=== PATIENT | female | born 1975 | race Caucasian/White ===

== ENCOUNTER 2022-08-04 09:26 | Day surgery (SDC) | payer OTHER, SELFPAY ==
[2022-07-29 08:08] VITALS: BMI 20.3
--- NOTE | 2022-08-03 11:58 | WPDANESEPPF ---
Anes - Initial Pre Proc Eval Procedure: Operation Date: 08/04/22 11:00 Proposed Procedures p Esophagogastroduodenoscopy - Roger Joseph MD <Abel Kendall MD - Last Filed: 08/03/22 11:59> Date/Time: 08/03/22 11:58 <Abel Kendall MD - Last Filed: 08/03/22 11:59> Surgeon: Roger Joseph MD <Abel Kendall MD - Last Filed: 08/03/22 11:59> Pre Op Diagnosis: Hematemesis, Gerd <Abel Kendall MD - Last Filed: 08/03/22 11:59> Patient Data Age: 47 Gender: F Height: 1.7 m Weight: 59 kg <Abel Kendall MD - Last Filed: 08/03/22 11:59> Allergies Allergy/AdvReac Type Severity Reaction Status Date / Time azithromycin Allergy Intermediate Rash Verified 08/04/22 10:04 <Abel Kendall MD - Last Filed: 08/03/22 11:59> Home Medications Medication Instructions Recorded Confirmed Type alprazolam 0.25 mg tablet 0.25 mg PO QHS PRN Anxiety 07/21/22 08/04/22 History bupropion HCl 150 mg 24 hr tablet, 150 mg PO QAM 07/21/22 08/04/22 History extended release multivitamin 1 tablet PO DAILY 07/21/22 08/04/22 History pantoprazole 40 mg tablet,delayed 40 mg PO QAM 07/21/22 08/04/22 History release rosuvastatin 20 mg tablet 20 mg PO DAILY 07/21/22 08/04/22 History dicyclomine 10 mg capsule 10 mg PO .every 6 hours PRN 07/27/22 08/04/22 Rx abdominal pain #360 caps escitalopram oxalate 20 mg tablet 20 mg PO DAILY 07/29/22 08/04/22 History <Abel Kendall MD - Last Filed: 08/03/22 11:59> Patient hx anesthesia problems: none <Ajit Byrnes MD - Last Filed: 08/04/22 10:07> Family hx anesthesia problems: none <Ajit Byrnes MD - Last Filed: 08/04/22 10:07> Results Review: All pre-operative results and documents have been reviewed as part of the pre-operative evaluation. <Abel Kendall MD - Last Filed: 08/03/22 11:59> [facility] Past Medical History Medical History: Medical History Anxiety Diverticulosis GERD (gastroesophageal reflux disease) Hematemesis of fresh blood History of adenomatous polyp of colon Hyperlipidemia Tobacco abuse <Abel Kendall MD - Last Filed: 08/03/22 11:59> Social History Social History: Social History Smoking packs per day: 0.5 Smoking cigarettes per day: 10.0 Years smoked: 20 Smoking pack-years: 10.00 Smoking status: Current every day smoker Tobacco type: cigarettes Substance use: current Substance use type: marijuana Other substance usage details: 4X PER MONTH Living arrangements: with family Spiritual care concerns: No <Abel Kendall MD - Last Filed: 08/03/22 11:59> Anes - Eval Final PreProcedure Day of Procedure 08/03/22 11:58 <Abel Kendall MD - Last Filed: 08/03/22 11:59> Patient weight: normal <Abel Kendall MD - Last Filed: 08/03/22 11:59> Heart: regular rate and rhythm <Abel Kendall MD - Last Filed: 08/03/22 11:59> Lungs: clear to auscultation and normal air movement <Abel Kendall MD - Last Filed: 08/03/22 11:59> Airway: Mallampati scale class II <Abel Kendall MD - Last Filed: 08/03/22 11:59> Neurological: alert and oriented <Abel Kendall MD - Last Filed: 08/03/22 11:59> Last oral intake: >/= 8 hours <Abel Kendall MD - Last Filed: 08/03/22 11:59> ASA classification: II <Abel Kendall MD - Last Filed: 08/03/22 11:59> Emergent: no <Abel Kendall MD - Last Filed: 08/03/22 11:59> Anesthetic plan: proceed <Abel Kendall MD - Last Filed: 08/03/22 11:59> Anesthesia type and monitoring: general GIVS <Abel Kendall MD - Last Filed: 08/03/22 11:59> Results Review: All pre-operative results and documents have been reviewed as part of the pre-operative evaluation. <Abel Kendall MD - Last Filed: 08/03/22 11:59> Informe
[2022-08-04 09:44] VITALS: BP 135/85; PULSE 62; RESP 16; TEMP 36.6; O2SAT 99
[2022-08-04] MEDS: LACTATED RINGERS 1,000 ML 150 ML IV CONT (10:02)
--- NOTE | 2022-08-04 10:17 | WPDHPUPDATE1 ---
History and Physical Update Update Date/Time: 08/04/22 10:17 History and Physical has been reviewed, including an updated exam of the patient. There are NO changes in the patient's condition. Risks, benefits, and alternatives have been discussed and questions answered. Patient agrees to proceed with procedure.
[2022-08-04 10:55] VITALS: BP 120/79; PULSE 73; RESP 16; O2SAT 98
[2022-08-04 11:05] VITALS: BP 139/94; PULSE 62; RESP 14; O2SAT 100
--- NOTE | 2022-08-04 11:13 | WPDANESPN ---
Anes - Prog Note Post-Op Date/Time: 08/04/22 11:13 Cardiovascular status: normal Respiratory status: normal Airway patency: baseline Mental status: baseline Post-Op hydration status: normal Vital Signs: Last Vital Signs Temp 36.6 C 08/04/22 09:44 Pulse 62 08/04/22 11:05 Resp 14 08/04/22 11:05 BP 139/94 H 08/04/22 11:05 Pulse Ox 100 08/04/22 11:05 O2 Del Method Room Air 08/04/22 11:05 Pain Score (VAS): 0/10 I/O: Intake & Output 08/03/22 08/04/22 08/04/22 23:59 07:59 15:59 Intake Total 200 Balance 200 Patient Feedback: Patient satisfied with anesthetic care.
[2022-08-04 11:15] VITALS: BP 141/84; PULSE 62; RESP 14; O2SAT 100
== END 2022-08-04 11:36 | disposition home or self-care (01) ==
PROVIDERS: PCP Student in an Organized Health Care Education/Training Program; Visit Provider Internal Medicine Gastroenterology
PROC: 0DJ08ZZ Inspection of Upper Intestinal Tract, Via Natural or Artificial Opening Endoscopic (ICD-10-PCS; CPT 43235; principal; 2022-08-04 11:00)
DX: K92.0 Hematemesis (principal)
CPT/HCPCS: 43239

== ENCOUNTER → 2024-06-11 15:23 | Outpatient (CLI) | payer OTHER, SELFPAY ==
--- NOTE | ~2024-06-11 | XR_ITS ---
CHEST RADIOGRAPH, PA AND LATERAL CLINICAL HISTORY: PERSISTENT COUGH. . COMPARISON: None TECHNIQUE: PA and lateral views of the chest. FINDINGS The cardiomediastinal silhouette is unremarkable. The lungs are clear. Visualized osseous structures and soft tissues are unremarkable. IMPRESSION: No focal infiltrate or effusion. Reviewed, dictated and finalized at location A.
--- OUTSIDE RECORDS SUMMARY | 2024-06-11 16:34 | XMS_ITS | Encounter Summary ---
Author Organization [facility] Address [address] [place] [id number] Care Team Providers Care Angle Shear Operator Name Role Phone Oren Pak DO Primary Care Provider + Encounter Details Date Type Department Care Team (Late st Contact Info) Description 05/07/2024 MyChart Message Enc [facility] Family & Internal Medicine [facility] [address] [place] [address] Oren Pak DO [facility] [place], [place] [id number] Mammogram Social History Tobacco Use Types Packs/Day Years Used Date Smoking Tobacco: Former Cigarettes 0.5 10 Q uit: 08/27/2021 Passive Smoke Exposure: Never Smokeless Tobacco: Never Comments:provider to community health counselor Alcohol Use Standard Drinks/Week Comments Not Currently 3.3 (1 standard drink = 0.6 oz p ure alcohol) very rarely AUDIT-C Answer Date Recorded Frequency of Alcohol Consumption Monthly or less 10/10/2019 Average Number of Drinks 1 or 2 020 Frequency of Binge Drinking Never 09/27 PHQ-2 Answer Date Recorded Patient Health Questionnaire-2 Score 0 01/24/2024 Comments No Sex and Gender Information Value Date Recorded Sex Assigned at Not on file Legal Sex Female 9:08 AM CDT Gender Identity Not on file Sexual Orientation Not on file Occupation Industry Job Start Date Job End Date teacher Not on file Not on file Not on file documented as of this encounter Plan of Treatment Upcoming Encounters Date Type Department Care Team (Late st Contact Info) Description 07/29/2024 7:20 AM CDT Laboratory Only [facility] Family & Internal Medicine [address] [address] Oren Pak DO [address] [place] [address] 08/05/2024 10:20 AM CDT Office Visit [facility] Family & Internal [address] [address] Oren Pak DO [address] [place] [address] documented as of this encounter Visit Diagnoses Not on filedocumented in this encounter Additional Health Concerns Assessment Noted Time PHQ-9 Depression Total Score: 3 05/01/19 24 11:45 AM DRAGLINE OPERATOR HELPER documented as of this encounter Care Teams Angle Shear Operator Relationship Specialty Start Date End Date Oren Pak DO [address] [place] [id number] PCP - General FAMILY PRACTICE 10/10/19 documented as of this encounter
--- OUTSIDE RECORDS SUMMARY | 2024-06-11 16:34 | XMS_ITS | Referral Summary ---
Author Organization [facility] Address [address] [place] [address] Care Team Providers Care Sprue Cutting Press Operator Name Role Phone Oren Pak Primary Care Provide r Encounters Date Type Department Care Team Description 05/04/2024 9:45 AM PUNCH PRESS FEEDER - 05/04/2024 11:59 PM PUNCH PRESS FEEDER Hospital Encounter [facility] [address] [place] [address] Screening mammogram, encounter for Discharge Disposition: Discharge to home or self care from Last 3 Months Allergies Active Allergy Reactions Criticality Noted Date Comments Azithromycin Rash Reaction: Rash, Medications ALPRAZolam (XANAX) 0.25 mg tablet Take 1 tablet (0.25 mg total) by mouth daily as needed 05/01/2023 Active buPROPion XL (WELLBUTRIN XL) 300 mg 24 hr tablet Take 1 tablet (300 mg total) by mouth daily 03/20/2023 Active rosuvastatin (CRESTOR) 20 mg tablet Take 1 tablet (20 mg total) by mouth daily 05/01/2023 Active sertraline (ZOLOFT) 100 mg tablet Take 1.5 tablets (150 mg total) by mouth daily 09/04/2023 Active Active Problems Problem Noted Date Diagnosed Date Family history of colon cancer 11/11/2021 Overview (11/11/2021): Added automatically from request for surgery [id number] Encounter for screening colonoscopy 11/11/2021 Overview (11/11/2021): Added automatically from request for surgery [id number] Vaginal delivery Resolved Problems Problem Noted Date Diagnosed Date Resolved Date Vitamin D deficiency 06/29/2017 018 AMA (advanced maternal age) multigravida 35+, third trimester 06/08/2017 11/30/2017 No pathologic diagnosis 07/13/201310/29 Overview (06/02/2016): No diagnosis 38 weeks gestation of 12/01/2018 Social History Tobacco Use Types Packs/Day Years Used Date Smoking Tobacco: Some Days Cigarettes 0.3 20 Smokeless Tobacco: Never Tobacco Cessation:Ready to Q uit: Not Asked; Counseling Given: Not Answered Alcohol Use Standard Drinks/Week Comments No 0 (1 standard drink = 0.6 oz pur e alcohol) AUDIT-C Answer Date Recorded Q1: How often do you have a drink containing alc ohol? Never 03/14/2022 Average Number of Drinks Not on file 023 Frequency of Binge Drinking Not on file 02/27 PHQ-2 Answer Date Recorded PHQ-2 Total Score (If total score is 3 or more points, staff should administer the PHQ-9) 0 02/18/2021 Comments No Sex and Gender Information Value Date Recorded Sex Assigned at Not on file Legal Sex Female 7:37 PM PUNCH PRESS FEEDER Gender Identity Not on file Sexual Orientation Not on file Last Filed Vital Signs Vital Sign Reading Time Taken Comments Blood Pressure 124/86 11/04/2023 10:33 AM CDT Pulse 99 11/04/2023 10:33 AM CDT Temperature 36.4 C (97.5 F) 11/04/2023 10:33 AM CDT Respiratory Rate 16 11/04/2023 10:33 AM CDT Oxygen Saturation 99% 11/04/2023 10:33 AM CDT Inhaled Oxygen Concentration - - Weight 73 kg (161 lb) 11/04/2023 10:33 AM CDT Height 170.2 cm (5' 7 ) 11/04/2023 10:33 AM CDT Body Mass Index 25.22 11/04/2023 10:33 AM CDT Plan of Treatment Not on file Procedures Procedure Name Priority Date/Time Associated Diagnosis Comments SCREENING MAMMOGRAM BILATERAL W CORNELL Schedule Routine, Read Routine (OP Routine) 05/04/2024 10:13 AM PUNCH PRESS FEEDER Screening mammogram, encounter for COLONOSCOPY 03/14/2022 10:14 AM PUNCH PRESS FEEDER PAP AND HIGH RISK HPV, REFLEX TO GENOTYPING Routine 02/18/2021 11:43 AM PUNCH PRESS FEEDER Well woman exam HEPATITIS C ANTIBODY Routine 06/28/2017 3:15 PM CDT Encounter for supervision of other normal in first trimester from Last 3 Months or Most Recently Relevant to Health Maintenance Results * Screening Mammogram Bilateral W [facility] (05/04/2024 10:13 AM PUNCH PRESS FEEDER) Anatomical Region Laterality Modality Breast Bilateral Mammography 05/06/2024 8:12 AM CDT Impressions 05/06/2024 8:12 AM CDT There is no mammographic evidence of malignancy. A 1 year screening mammogram is recommended. BI-RADS: 1 - Negative. The patient has been or will be contacted. The patient will be entered into a reminder system with a target due date of 1 year for her next mammogram. Electronically signed by: Cele Alegre M.D. Narrative 05/06/2024 8:12 AM CDT EXAMINATION: SCREENING MAMMOGRAM BILATERAL W CORNELL ORDERING HEALTHCARE PROVIDER: SELF SCREENING MAMMOGRAM HISTORY: Routine screening mammography. COMPARISON: 12/07/2021, 05/23/2020, 03/18/2019 TECHNIQUE: CC and MLO views of the bilateral breasts were obtained with digital technique using breast tomosynthesis with C view. Computer aided detection was utilized. FINDINGS: DENSITY: The breasts are heterogeneously dense, which may obscure small masses. BREASTS: There are no suspicious masses, suspicious calcifications, or other suspicious findings in either breast. There has been no suspicious interval change. us Self Screening Mammogram IMG MAMMO PROCEDURES Fi nal Result * COLONOSCOPY (03/14/2022 10:14 AM PUNCH PRESS FEEDER) Anatomical Region Laterality Modality Other Narrative Procedure Note Mariah Najera MD - 03/14/2022 10:14 AM CST [facility] Patient Name: Berenice Emeterio Procedure Date: 03/14/2022 10:14 AM Date of : 1975 Admit Type: Outpatient Age: 47 Gender: Female Attending MD: Mariah Najera M.D. Room: [facility] END[facility]COPY RO[facility] 1 Note Status: Finalized Patient Profile: This is a 47 year old female. No family history of colon cancer. Screening Procedure: Colonoscopy Indications: Screening for colorectal malignant neoplasm, Thisis the patient's first colonoscopy Referring MD: Selin Taylor, Oren Pak D.O. Providers: Mariah Najera M.D. Impression: - Diverticulosis in the sigmoid colon. - Two 6 to 12 mm polyps in the sigmoid colon,removed with a snare. Resected and retrieved. - Internal hemorrhoids. Recommendation: - Repeat colonoscopy in 3 years for screeningpurposes. - Await pathology results. - Continue present medications. Medicines: Monitored Anesthesia Care Complications: No immediate complications. Estimated Blood Loss: Estimated blood loss: none. Procedure: Pre-Anesthesia Assessment: - Prior to the procedure, a History and Physicalwas performed, and patient medications and allergieswere reviewed. The patient's tolerance of previous anesthesia was also reviewed. The risks andbenefits of the procedure and the sedation options and risks were discussed with the patient. All questions were answered, and informed consent was obtained. Prior Anticoagulants: The patient has taken noanticoagulant or antiplatelet agents. ASA Grade Assessment: II -A patient with mild systemic disease. After reviewing the risks and benefits, the patient was deemed in satisfactory condition to undergo the procedure. The benefits, risks and alternatives of theprocedure and sedation were discussed and informed consentwas obtained. All questions were answered. Please referto the signed informed consent document in the medical record. The bowel preparation used was Miralax via split dose instruction. The bowel preparation usedwas bisacodyl tablets via split dose instruction. The scope was passed under direct vision. The Pediatric Colonoscope [id number]-[id number] was introducedthrough the anus and advanced to the the cecum, identifiedby appendiceal orifice and ileocecal valve. Thequality of the bowel preparation was good. Bowel prep was administered using a split dose. Findings: The perianal and digital rectal examinations were normal. The descending colon, transverse colon, ascending colon and cecum appeared normal. Many small-mouthed diverticula were found in the sigmoid colon. Two sessile polyps were found in the sigmoid colon. The polyps were 6 sessile and 12 mm pedunculated in size. These polyps were removedwith a cold snare and hot snare respectively. Resection and retrieval were complete. Internal hemorrhoids were found during retroflexion. The hemorrhoids were small. Electronically signed by Mariah Najera M.D. Mariah Najera M.D. 03/14/2022 12:00:26 PM Number of Addenda: 0 Note Initiated On: 03/14/2022 10:14 AM Procedure Code(s): --- Professional --- 19435, Colonoscopy, flexible; with removal of tumor(s), polyp(s), or other lesion(s) by snare technique Diagnosis Code(s): --- Professional --- Z12.11, Encounter for screening for malignant neoplasm of colon K64.8, Other hemorrhoids D12.5, Benign neoplasm of sigmoid colon K57.30, Diverticulosis of large intestine without perforation orabscess without bleeding CPT copyright 2020 [employer]. All rights reserved. The codes documented in this report are preliminary and upon remedial teacher reviewmay be revised to meet current compliance requirements. Recognized by the [employer] for promoting quality in endoscopy Mariah Najera MD ENDOSCOPY PROCEDURES Final Result * Pap and High Risk HPV, reflex to Genotyping (02/18/2021 11:43 AM PUNCH PRESS FEEDER) Clinical indication Comment [facility] - 01 Comment:NEGATIVE FOR INTRAEP ITHELIAL LESION OR MALIGNANCY. Specimen adequacy: Comment [facility] - 01 Comment:Satisfactory for yessy luation. No endocervical component is identified. Clinician provided ICD10 Comment [facility] - 01 Comment:Z01.419 Performed by Comment [facility] - 01 Comment:Dony Stringer Cytotec hnologist (ASCP) . . [facility] - 01 Note: Comment [facility] - 01 Comment: The Pap smear is a screening test designed to aid in the detection of premalignant and malignant conditions of the uterine cervix. It is not a diagnostic procedure and should not be used as the sole means of detecting cervical cancer. Both false-positive and false-negative reports do occur. Test methodology Comment [facility] - 01 Comment: This liquid based ThinPrep(R) pap test was screened with the use of an image guided system. HPV Aptima Negative Negative [facility] 02 Comment: This nucleic acid amplification test detects fourteen high-risk HPV types (16,18,31,33,35,39,45,51,52,56,58,59,66,68) without differentiation. Swab 02/18/2021 11:4 3 AM PUNCH PRESS FEEDER 02/22/2021 Narrative [facility] - 02/24/2021 1:08 PM PUNCH PRESS FEEDER Performed at: [address] [place] [id number] Automation Operator: Rahel Coronel MD, Phone: [phone] Performed at: [facility] [id number] Automation Operator: Rahel Coronel MD, Phone: [phone] Specimen Comment: No. of containers..01 ThinPrep Vial us Berenice Sanders NP LAB CYTOLOGY ORDERABLES Final Re sult Performing Organization Address City/[facility]/ZIP Co de Phone Number [facility] - [facility] [place] 02 * Hepatitis C antibody (06/28/2017 3:15 PM CDT) Pathologist [facility] Hep C Ab <0.1 0.0 - 0.9 s/co ratio [facility] - Comment: Negative: < 0.8 Indeterminate: 0.8 - 0.9 Positive: > 0.9 The CDC recommends that a positive HCV antibody result be followed up with a HCV Nucleic Acid Amplification test (229287). Blood specimen (specimen) 06/28/2017 3:15 PM CDT 06/28/2017 Narrative [facility] - 06/29/2017 10:17 AM CDT Performed at: [facility] [id number] Automation Operator: Jerzy Lau PhD, Phone: [phone] us Sedrick Patterson MD LAB MICROBIOLOGY - GENERAL ORDERABLES Final Result Performing Organization Address [facility] Co de Phone Number [facility] from Last 3 Months or Most Recently Relevant to Health Maintenance [place] [address] [facility] [employer] [facility] H[facility]/PPO Address: [address] [place] [address] [facility] [employer] [facility] H[facility]/PPO Address: [place] [address] [facility] [employer] [facility] H[facility]/PPO Address: [place] [address] Advance Directives For more information, please contact: [phone] * Full Code (Latest Code Status on File) Date Activated Date Inactivated Comments 03/14/2022 9:43 AM 03/14/2022 4:17 PM * Full Code Date Activated Date Inactivated Comments 03/14/2022 9:43 AM 03/14/2022 9:43 AM * Full Code Date Activated Date Inactivated Comments 12/10/2017 6:13 AM 12/11/2017 4:53 PM Full CPR i n case of cardiopulmonary arrest Care Teams Sprue Cutting Press Operator Relationship Specialty Start Date End Date Oren Pak DO [facility] [address] [place] [address] PCP - General Family Medicine 12/07/21
--- OUTSIDE RECORDS SUMMARY | 2024-06-11 16:34 | XMS_ITS | Clinical Summary ---
Author Organization [facility] Building B Address [address] [place] [address] Care Team Providers Care Tree Loader Meat Name Role Phone Oren Pak Primary Care Provide r Allergies Active Allergy Reactions Criticality Noted Date [...] (11/11/2021): Added automatically from request for surgery [id number] Encounter for screening colonoscopy 11/11/2021 Overview (11/11/2021): Added automatically from request for surgery [id number] Vaginal delivery Resolved Problems Problem Noted Date Diagnosed Date Resolved Date Vitamin D deficiency 06/29/2017 018 AMA (advanced maternal age) multigravida 35+, third trimester 06/08/2017 11/30/2017 No pathologic diagnosis 07/13/201310/29 Overview (06/02/2016): No diagnosis 38 weeks gestation of 12/01/2018 Encounters Date Type Department Care Team Description 05/04/2024 9:45 AM SPECIALTY DEPARTMENT SUPERVISOR - 05/04/2024 11:59 PM SPECIALTY DEPARTMENT SUPERVISOR Hospital Encounter [facility] [address] [place] [address] Screening mammogram, encounter for Discharge Disposition: Discharge to home or self care from Last 3 Months Surgical History Surgery Date Site/Laterality Comments OTHER SURGICAL HISTORY 02/27/2001 - 02/26/2002 : OTHER SURGICAL HISTORY 02/28/2004 - 02/26/2005 : OTHER SURGICAL HISTORY 02/27/2005 - 02/26/2006 : OTHER SURGICAL HISTORY 02/27/2009 - 02/26/2010 : COLONOSCOPY 03/14/2022 Medical History Medical History Date Comments Hx Other Medical 2001 ; Outc ome: 39 week 6 lb(s) 7 oz Female Hx Other Medical 2004 ; Outc ome: 39 week 6 lb(s) 10 oz Female Hx Other Medical 2005 ; Outc ome: 39 week 7 lb(s) 8 oz Male Hx Other Medical 2009 ; Outc ome: 39 week 8 lb(s) 7 oz Female Breast cyst Smoking Hypercholesterolemia Family History Medical History Relation Name Comments Hypertension Brother Hypertension; COPD Father COPD; Other Father Alive and well; Coronary artery disease Maternal Grandfather Coronary artery disease; Colon cancer Maternal Grandmother Thyroid disease Maternal Grandmother Thyr oid disease; Depression Mother Depression; Hypertension Mother Hypertension; Lupus Mother Lupus erythemat osus; Thyroid disease Mother Thyroid dise ase; Coronary artery disease Paternal Grandfather Coronary artery disease; Breast cancer Paternal Grandmother Cancer , breast; Diabetes Paternal Grandmother Diabete s mellitus; Relation Name Status Comments Brother Father Alive Maternal Grandfather Maternal Grandmother Mother Paternal Grandfather Paternal Grandmother Social History Tobacco Use Types Packs/Day Years [...] on file Legal Sex Female 7:37 PM SPECIALTY DEPARTMENT SUPERVISOR Gender Identity Not on file Sexual Orientation Not on file Obstetrics History Para Term AB IAB SAB Ectopic Multiple Livin g Live Births 9 6 2 3 3 0 6 6 Date Outcome GA Total Labor Labor//3rd Weight Sex Type Anes PTL Nazanin A1 A5 Name Clin SAB SAB SAB SAB SAB SAB 002 Para 2.92 kg (6 lb 7 oz) F Vag-S pont Livin g 005 Para 3.005 kg (6 lb 10 oz) F Vag-S pont Livin g 006 Para 3.402 kg (7 lb 8 oz) M Vag-S pont Livin g 010 Para 3.827 kg (8 lb 7 oz) M Vag-S pont Livin g 017 Term 39w 0d 3.118 kg (6 lb 14 oz) M Vag-S pont Epidur al N Livin g Madi Complications:None 018 Term 38w 2d 3h 06m 2h 47m/0h 07m/0h 12m 3.487 kg (7 lb 11 oz) F Vag-S pont None N Livin g 9 9 MENES ES,GI RLAMY Complications:None Delivery Location:[facility] Last Filed Vital Signs Vital Sign Reading [...] 11/04/2023 10:33 AM CDT Plan of Treatment Health Maintenance Due Date Last Done Comments Hepatitis B Screening 1994 Pneumococcal vaccine <65 (1 of 2 - PCV) 1995 Cervical Cancer Screening 02/18/2022 02/18/2021, Depression Screening 02/18/2022 02/18/2021, 02/17/2020, 01/28/2019, Additional history exists Regular Well Visit/Exam 18-64 02/18/2022, 02/17/2020, 01/28/2019 Covid-19 Vaccine (2023-2 5 season) 2023 02/16/2021, 05/08/2020, 04/10/2020 Breast Cancer Screening-Mammogram 05/04/2025 05/04/2024, 12/07/2021, 05/23/2020, Additional history exists DTaP/Tdap/Td Vaccine (2 - Td or Tdap) 08/19/2026 08/19/2016 Colon Cancer Screening-Colonoscopy 03/14/20322022 Hepatitis C Screening Completed 06/28/2017 Influenza Vaccine Completed 01/24/2024, , 12/23/2020, Additional history exists Procedures Procedure Name Priority Date/Time Associated Diagnosis Comments SCREENING MAMMOGRAM BILATERAL W CORNELL Schedule Routine, Read Routine (OP Routine) 05/04/2024 10:13 AM SPECIALTY DEPARTMENT SUPERVISOR Screening mammogram, encounter for COLONOSCOPY 03/14/2022 10:14 AM SPECIALTY DEPARTMENT SUPERVISOR PAP AND HIGH RISK HPV, REFLEX TO GENOTYPING Routine 02/18/2021 11:43 AM SPECIALTY DEPARTMENT SUPERVISOR Well woman exam HEPATITIS C ANTIBODY Routine 06/28/2017 3:15 PM CDT Encounter for supervision of other normal in first trimester from Last 3 Months or Most Recently Relevant to Health Maintenance Results * Screening Mammogram Bilateral W Cornell (05/04/2024 10:13 AM SPECIALTY DEPARTMENT SUPERVISOR) Anatomical Region Laterality Modality Breast Bilateral Mammography [...] nal Result * COLONOSCOPY (03/14/2022 10:14 AM SPECIALTY DEPARTMENT SUPERVISOR) Anatomical Region Laterality Modality Other Narrative Procedure Note Mariah Najera MD - 03/14/2022 10:14 AM CST [facility] Patient Name: Berenice Storm Procedure Date: 03/14/2022 10:14 AM Date of : 1975 Admit Type: Outpatient Age: 47 Gender: Female Attending MD: Mariah Najera M.D. Room: [facility] ENDOSCOPY ROOM 1 Note Status: Finalized Patient [...] under direct vision. The Pediatric Colonoscope [id number]-H190L [id number] was introducedthrough the anus and advanced to [...] 10:14 AM Procedure Code(s): --- Professional --- 75987, Colonoscopy, flexible; with removal of tumor(s), polyp(s), or other lesion(s) by snare technique Diagnosis Code(s): --- Professional --- Z12.11, Encounter for screening for malignant neoplasm of colon K64.8, Other hemorrhoids D12.5, Benign neoplasm of sigmoid colon K57.30, Diverticulosis of large intestine without perforation orabscess without bleeding CPT copyright 2020 [employer]. All rights reserved. The codes documented in this report are preliminary and upon street light servicer supervisor reviewmay be revised to meet current compliance requirements. Recognized by the [employer] for promoting quality in endoscopy Mariah Najera MD ENDOSCOPY PROCEDURES Final Result * Pap and High Risk HPV, reflex to Genotyping (02/18/2021 11:43 AM SPECIALTY DEPARTMENT SUPERVISOR) Clinical indication Comment [facility] - Comment:NEGATIVE FOR INTRAEP ITHELIAL LESION OR MALIGNANCY. Specimen adequacy: Comment [facility] - 01 Comment:Satisfactory for yessy luation. No endocervical component is identified. Clinician provided ICD10 Comment [facility] - Comment:Z01.419 Performed by Comment [facility] - 01 Comment:Dony Stringer, [employer] hnologist (ASCP) . . [facility] - [...] do occur. Test methodology Comment [facility] - Comment: This liquid based ThinPrep(R) pap test was screened with the use of an image guided system. HPV Aptima Negative Negative [facility] Comment: This nucleic acid amplification test detects fourteen high-risk HPV types (16,18,31,33,35,39,45,51,52,56,58,59,66,68) without differentiation. Swab 02/18/2021 11:4 3 AM SPECIALTY DEPARTMENT SUPERVISOR 02/22/2021 Narrative [facility] - 02/24/2021 1:08 PM SPECIALTY DEPARTMENT SUPERVISOR Performed at: - [facility] [id number] Electronic Sales And Service Technician: Rahel Coronel MD, Phone: [phone] Performed at: - [facility] [id number] Electronic Sales And Service Technician: Rahel Coronel MD, Phone: [phone] Specimen Comment: No. of containers..01 ThinPrep Vial Berenice Sanders NP LAB CYTOLOGY ORDERABLES Final Re sult [facility] - [facility] 02 * Hepatitis C antibody (06/28/2017 3:15 PM CDT) Pathologist [facility] Hep C Ab <0.1 0.0 - 0.9 s/co ratio [facility] - 01 Comment: Negative: < 0.8 Indeterminate: 0.8 - 0.9 Positive: > 0.9 The CDC recommends that a positive HCV antibody result be followed up with a HCV Nucleic Acid Amplification test (275989). Blood specimen (specimen) 06/28/2017 3:15 PM CDT 06/28/2017 Narrative [facility] - 06/29/2017 10:17 AM CDT Performed at: - [facility] [id number] Electronic Sales And Service Technician: Jerzy Lau PhD, Phone: [phone] us Sedrick Patterson MD LAB MICROBIOLOGY - GENERAL ORDERABLES Final Result Performing Organization Address City/State/[facility] Co de Phone Number [facility] from Last 3 Months or Most Recently Relevant to Health Maintenance Insurance [place] [address] [facility] H[facility]/PPO Address: [facility] [id number] [place] [address] [facility] CHO[facility] H[facility]/PPO Address: [address] [place] [address] [place] [address] [facility] CHO[facility] H[facility]/PPO Address: [place] [address] Advance Directives For more information, please contact: [phone] * Full Code (Latest Code Status on File) Date Activated Date Inactivated Comments 03/14/2022 9:43 AM 03/14/2022 4:17 PM * Full Code Date Activated Date Inactivated Comments 03/14/2022 9:43 AM 03/14/2022 9:43 AM * Full Code Date Activated Date Inactivated Comments 12/10/2017 6:13 AM 12/11/2017 4:53 PM Full CPR i n case of cardiopulmonary arrest Care Teams Tree Loader Meat Relationship Specialty Start Date End Date Oren Pak DO [address] [place] [phone] PCP - General Family Medicine 12/07/21
--- OUTSIDE RECORDS SUMMARY | 2024-06-11 16:34 | XMS_ITS | Clinical Summary ---
Author Organization [facility] Address [address] [place] [address] Phone Care Team Providers Care Car Salesperson Name Role Phone Provider, None Primary Care Provider Unavailabl e Allergies Active Allergy Reactions Criticality Noted Date Comments Azithromycin Rash 08/25/2016 Medications Vit-Fe Fumarate-FA ( VITAMIN PO) Take 1 Tab by mouth daily. Active Cholecalciferol (VITAMIN D PO) Take 5,000 Units by mouth daily. Active cefUROXime (CEFTIN) 250 MG Tablet Take 250 mg by mouth 2 times daily. 08/24/2016 Active methylPREDNISol one (MEDROL DOSPACK) 4 MG Tablet Therapy Pack See product package insert for dosing schedule 21 Tab 08/25/2016 Active Immunizations Immunization Administration Dates Next Due TDAP Vaccine 08/19/2016 Family History Medical History Relation Name Comments Heart Attack Maternal Grandfather Stroke Maternal Grandmother Thyroid Disease Maternal Grandmother Hypertension Mother Breast Cancer Paternal Grandmother Diabetes Paternal Grandmother Relation Name Status Comments Maternal Grandfather Maternal Grandmother Mother Paternal Grandmother Social History Tobacco Use Types Packs/Day Years Used Date Smoking Tobacco: Former Cigarettes 0.3 1 0 10/18/2014 - 10/19/2015 Tobacco Cessation:Counseling Given: Yes Alcohol Use Standard Drinks/Week Comments No 0 (1 standard drink = 0.6 oz pur e alcohol) Sexually Active Control Partners Comments Yes Male Comments No Sex and Gender Information Value Date Recorded Sex Assigned at Not on file Legal Sex Female 10:43 PM CDT Gender Identity Not on file Sexual Orientation Not on file Last Filed Vital Signs Vital Sign Reading Time Taken Comments Blood Pressure 165/87 08/25/2016 3:46 AM CDT Pulse 51 08/25/2016 3:46 AM CDT Temperature 36.1 C (96.9 F) 08/25/2016 3:46 AM CDT Respiratory Rate 18 08/25/2016 3:46 AM CDT Oxygen Saturation 99% 08/25/2016 3:46 AM CDT Inhaled Oxygen Concentration - - Weight 63.5 kg (140 lb) 08/25/2016 3:46 AM CDT Height 170.2 cm (5' 7 ) 08/25/2016 3:46 AM CDT Body Mass Index 21.93 08/25/2016 3:46 AM CDT Plan of Treatment Not on file Advance Directives * Full Code (Latest Code Status on File) Date Activated Date Inactivated Comments 08/18/2016 6:38 AM 08/19/2016 7:13 PM CPR-Full Xavier atment: FULL ARREST: Attempt Resuscitation/CPR wit intubation and mechanical ventilation. PRE-ARREST: Use entire range of life support measures to stabilize the patient. Care Teams Car Salesperson Relationship Specialty Start Date End Date Provider, None [place] PCP - General 08/25/16
--- OUTSIDE RECORDS SUMMARY | 2024-06-11 16:34 | XMS_ITS | Encounter Summary ---
Author Organization [facility] Address [address] [place] [address] Phone Care Team Providers Care Crane Oiler Name Role Phone Erick RandolphNoam Primary Care Provider sIela e No, Physician Primary Care Provider [phone] Oren Pak DO Primary Care Provide r Encounter Details Date Type Department Care Team (Late st Contact Info) Description 02/02/2017 Orders Only [facility] ProviderElsi MD [address] [place] [address] Social History Tobacco Use Types Packs/Day Years Used Date Smoking Tobacco: Former Smokeless Tobacco: Never Alcohol Use Standard Drinks/Week Comments No 0 (1 standard drink = 0.6 oz pur e alcohol) Comments No Sex and Gender Information Value Date Recorded Sex Assigned at Not on file Legal Sex Female 7:37 PM FARM EQUIPMENT MAINTENANCE SUPERVISOR Gender Identity Not on file Sexual Orientation Not on file documented as of this encounter Plan of Treatment Not on file documented as of this encounter Procedures Procedure Name Priority Date/Time Associated Diagnosis Comments DISCHARGE LABORATORY CUMULATIVE REPORT 02/02/2017 12:00 AM FARM EQUIPMENT MAINTENANCE SUPERVISOR documented in this encounter Results * DISCHARGE LABORATORY CUMULATIVE REPORT (02/02/2017 12:00 AM FARM EQUIPMENT MAINTENANCE SUPERVISOR) Narrative 02/02/2017 12:00 AM FARM EQUIPMENT MAINTENANCE SUPERVISOR Ordered by an unspecified provider. Historical Provider LAB BLOOD ORDERABLES Rajani l Result documented in this encounter Visit Diagnoses Not on filedocumented in this encounter Care Teams Crane Oiler Relationship Specialty Start Date End Date Erick RandolphNoam PCP - General 05/27/16 03/17/19 No, Physician PCP - General 03/18/19 12/06/21 Oren Pak DO [address] [place] [address] [id number] PCP - General Family Medicine 12/07/21 documented as of this encounter
--- OUTSIDE RECORDS SUMMARY | 2024-06-11 16:34 | XMS_ITS | Clinical Summary ---
Author Organization [facility] Address [address] [place] [address] Care Team Providers Care Maintenance Services Dispatcher Name Role Phone Pasha Oren Katie LOZANO Primary Care Provider + Allergies Active Allergy Reactions Criticality Noted Date Comments Azithromycin Rash Low 08/25/2016 Reaction: Rash, Medications multi vitamin/minerals tablet Take 1 tablet by mouth daily. Active sertraline (ZOLOFT) 100 MG tabletIndications:Gene ralized anxiety disorder Take 1.5 tablets (150 mg total) by mouth daily. 135 tablet 3 01/24/20 24 Active buPROPion XL (WELLBUTRIN XL) 300 MG 24 hr tabletIndications:Gene ralized anxiety disorder TAKE 1 TABLET DAILY 90 tablet 1 04/23/19 25 Active rosuvastatin (CRESTOR) 20 MG tabletIndications:Fami lial hypercholesteremia TAKE 1 TABLET NIGHTLY AT BEDTIME 90 tablet 1 04/23/19 25 Active ALPRAZolam (XANAX) 0.25 MG tabletIndications:Gene ralized anxiety disorder,Panic attacks Take 1 tablet (0.25 mg total) by mouth daily as needed for Anxiety. 30 tablet 06/05/19 25 Active ALPRAZolam (XANAX) 0.25 MG tabletIndications:Gene ralized anxiety disorder,Panic attacks Take 1 tablet (0.25 mg total) by mouth daily as needed for Anxiety. 30 tablet 03/18/19 25 025 Discontin ued(Reord er) Active Problems Problem Noted Date Diagnosed Date Anxiety 10/10/2019 Generalized anxiety disorder 10/10/2019 Nicotine dependence, cigarettes, uncomplicated 0 10/10/2019 Resolved Problems Problem Noted Date Diagnosed Date Resolved Date Vaginal delivery ([facility]) 10/10/2019 0 10/10/2019 Encounters Date Type Department Care Team Description 06/04/2024 Telephone [facility] [address] [address] Oren Pak, DO Medication Request 05/07/2024 [facility] Message Enc [facility] Internal [address] [address] Oren Pak, DO Mammogram 05/04/2024 Scan Anxa INFO SRVCS Scanned, [facility] Mammogram (SCAN) 03/18/2024 Telephone [facility] Internal [address] [address] Oren Pak, DO Medication Request from Last 3 Months Immunizations Immunization Administration Dates Next Due Fluarix (IIV4) 11/20/2019,12/11/2018 Fluzone (IIV3, Trivalent, 0. 5 ML Prefilled Syringe) 01/24/2024 Fluzone 6 Months+ Quad (0.5 mL Prefilled Syringe) 12/05/2022 Influenza Adult (Generic) 12/23/2020,,12/12/2018,2013,03/11/2013 MODERNA COVID-19 (12+) MRNA, LNP-S, PF, 100 MCG/ 0.5 ML DOSE 05/08/2020,04/10/2020 MODERNA COVID-19 (CONCRETE SAW OPERATOR ASHKAN CHRISTINA), MRNA, LNP-S, PF, 50 MCG/ 0.25 ML DOSE 02/16/2021 PFIZER COVID-19 (12+) MRNA, LNP-S, PF, ANURAG-SUCROSE, 30 MCG/0.3 ML (COMIRNATY) 01/24/2024 Pneumococcal (Prevnar 20) 06/06/2022 Tdap (Generic) 08/19/2016 Family History Medical History Relation Comments Hypertension Brother No Known Problems Daughter 1 No Known Problems Daughter 2 No Known Problems Daughter 3 No Known Problems Daughter 4 COPD Father Cancer Father Basal Cancer Maternal Grandmother Colon Colon Cancer Maternal Grandmother Depression Mother Hypertension Mother Lupus Mother Mental Health Mother Breast Cancer Paternal Grandmother Cancer Paternal Grandmother Breast Stroke Paternal Grandmother No Known Problems Sister 1 No Known Problems Sister 2 No Known Problems Son 1 No Known Problems Son 2 Relation Status Comments Brother Daughter 1 Alive Daughter 2 Alive Daughter 3 Alive Daughter 4 Alive Father Maternal Grandmother (Age 83) Oct 2020 Mother Alive Paternal Grandmother Sister 1 Sister 2 Son 1 Alive Son 2 Alive Social History Tobacco Use Types Packs/Day Years Used Date Smoking Tobacco: Former Cigarettes 0.5 10 Q uit: 08/27/2021 Passive Smoke Exposure: Never Smokeless Tobacco: Never Tobacco Cessation:Counseling Given: Not Answered Comments:provider to preparole counseling aide Alcohol Use Standard Drinks/Week Comments Not Currently [...] file Not on file Not on file Last Filed Vital Signs Vital Sign Reading Time Taken Comments Blood Pressure 110/62 01/24/2024 10:42 AM SALES OFFICE COORDINATOR Pulse 74 01/24/2024 10:42 AM SALES OFFICE COORDINATOR Temperature 36.7 C (98.1 F) 01/24/2024 10:42 AM SALES OFFICE COORDINATOR Respiratory Rate 16 01/24/2024 10:42 AM SALES OFFICE COORDINATOR Oxygen Saturation 97% 01/24/2024 10:42 AM SALES OFFICE COORDINATOR Inhaled Oxygen Concentration - - Weight 73 kg (160 lb 14.4 oz) 01/24/2024 10:42 A M SALES OFFICE COORDINATOR Height 170.2 cm (5' 7 ) 01/24/2024 10:42 AM SALES OFFICE COORDINATOR Body Mass Index 25.2 01/24/2024 10:42 AM SALES OFFICE COORDINATOR Plan of Treatment Upcoming Encounters Date Type Department Care Team (Late st Contact Info) Description 07/29/2024 7:20 AM CDT Laboratory Only [facility] [address] [place] [address] Oren Pak DO [address] [place] [address] 08/05/2024 10:20 AM CDT Office Visit [facility] [address] [place] [address] Oren Pak, [address] [place] [address] Health Maintenance Due Date Last Done Comments Cervical Cancer Screening Pap Smear (Age 30 to 64) Every 3 Years 1975 Annual Physical 1979 Hepatitis B Vaccines (1 of 3 - 19+ 3-dose series) 1995 Cervical Cancer Screening Pap with HPV Testing (Age 30 to 64) Every 5 Years 2006 PHQ-2 (Physician [place]) 02/28/2024 01/24/2024 Cervical Cancer Screening with HPV 01/23/2025 Postponed from 2006 (Future Appointment) Colorectal Cancer Screening Colonoscopy (10 Years) 03/14/2025 03/14/2022, 03/14/2022 Mammogram Screening 05/04/2025 05/04/2024, 12/07/2021, 12/07/2021, Additional history exists DTaP, Tdap and Td Vaccines (2 - Td or Tdap) 08/19/2026 08/19/2016 Hepatitis C Completed 09/23/2021 Pneumococcal Vaccine: Pediatrics (0 to 5 Years) and At-Risk Patients (6 to 49 Years) Aged Out 06/06/2022 No longer eligible based on patient's age to complete this topic COVID-19 Vaccine Completed 01/24/2024, , 05/08/2020, Additional history exists Meningococcal B Vaccine Aged Out No l onger eligible based on patient's age to complete this topic Meningococcal Vaccine Aged Out No kennedy cheyenne eligible based on patient's age to complete this topic RSV Immunizations Under 20 Months Aged Out No longer eligible based on patient's age to complete this topic Procedures Procedure Name Priority Date/Time Associated Diagnosis Comments MAMMOGRAM GENERIC (SCAN ORDER) 05/04/2024 COLONOSCOPY GENERIC (SCAN ORDER) 03/14/2022 HEPATITIS C ANTIBODY Routine 09/23/2021 7:40 AM CDT Need for hepatitis C screening test from Last 3 Months or Most Recently Relevant to Health Maintenance Results * MAMMOGRAM GENERIC (SCAN ORDER) (05/04/2024) Anatomical Region Laterality Modality Other 05/04/2024 [facility] Scanned SCANNING Final Resu lt * COLONOSCOPY GENERIC (03/14/2022) 03/14/2022 [facility] Scanned SCANNING Final Resu lt * HEPATITIS C ANTIBODY (09/23/2021 7:40 AM CDT) HEPATITIS C AB NON-REACTI VE NON-REACT NICOLE 09/23/2021 6:38 PM CDT [facility] Comment: ANTIBODIES TO HCV NOT DETECTED. DOES NOT EXCLUDE THE POSSIBILITY OF EXPOSURE TO HCV. 09/23/2021 7:40 AM CDT Oren Pak DO LABORATORY Final Re sult [facility] [address] [place] [address], [id number] from Last 3 Months or Most Recently Relevant to Health Maintenance Insurance [facility] Care Teams Maintenance Services Dispatcher Relationship Specialty Start Date End Date Oren Pak DO [address] [place] [phone] PCP - General FAMILY PRACTICE 10/10/19
== END ==
PROVIDERS: PCP Family Medicine
DX: R05.3 Chronic cough (principal)
CPT/HCPCS: 71046